=== PATIENT | female | born 2005 | race Caucasian/White ===

== ENCOUNTER 2025-01-04 18:30 | Inpatient (IN) | payer MEDICAID, SELFPAY ==
[2025-01-04] VITALS (17 sets, daily range): BP systolic 98–145; BP diastolic 53–86; PULSE 78–115; RESP 18; TEMP 36.6–36.7
--- OUTSIDE RECORDS SUMMARY | 2025-01-04 18:34 | XMS_ITS | Data Portability ---
Author Organization [facility] [place] [facility] Address [address] [place] [phone] Assessment No assessment recorded. Plan of Treatment Reminders Order Date Submit Date Provider Last Modified By Organization Details Last Modified Time Details Appointments RETURN OB 2024 10:50A M Deonte Servin MD Not available Not available Not available Lab streptoco ccus group B, culture, unspecifi ed specimen 2024 025 [place] [facility], [address] [facility] , [place] [address], [address], 12/10/2024 09:23:48 Referral None recorded. Procedures None recorded. Surgeries None recorded. Imaging None recorded. Medication Orders None recorded. Patient TargetsNo targets recorded. Patient InstructionsNo instructions recorded. Reason for Referral None Reported. Results Created Date Observation Date Name Description Value Unit Range Abnormal Flag Note LastModifiedBy Organization Detail LastModifiedTime 12/08/19 25 12/10/2024 STREP TOCOC CUS, GROUP B CULTU RE streptococcu s, group B culture SEE NOTE STREP TOCOC CUS, GROUP B CULTU RE Micro Numbe r: [id number] Test Statu s: Final Speci men Sourc e: Vagin al/an orect al Speci men Quali ty: Adequ ate Resul t: No group B Strep tococ cus isola urbano Note per CDC guide lines optim al recov catherine is achie robert by swabb ing both the lower vagin a and rectu m (thro ugh the anal sphin cter) . Not Available [facility] [address] , [place], [address], 12/10/2024 09:23:48 Result Notes None recorded. Problems Name Problem SNOMED Code Status Onset Date Resolution Date Notes Provider Name and Address Organization Details Recorded Time Normal in primigravid a 5295879047872 03 Active 2023 JAROD LYNN [facility] 14:23:31 Normal in primigravid a 2615918505235 03 Active 2023 JARODELYSSA LYNN [facility] 14:23:31 Problem Notes None recorded. Procedures Surgical History Date Name Laterality Status Provider Name and Address Organization Details Recorded Time extraction of wisdom tooth completed [facility] 08/01/2024 14:19:59 surgery of cataract of right eye completed [facility] 10/26/2024 12:03:07 Imaging Results None recorded. Procedure Notes None recorded. Medical Equipment None Reported. Allergies Allergen ID Allergen Name Allergen Category Reaction Reaction Severity Criticality Documentation Date Start Date Code Code System Note Provider Name and Address Organization Details Recorded Time 13188 Substance with sulfonami de structure and antibacte rial mechanism of action (substanc e) medicatio n Not available Not available Not available 08/01/2024 40992 8003 SNOMED [facility] 14:17:47 Medications Name Sig Start Date Stop Date Status Note LastModified by Organization Details LastModified Time amoxicillin 500 mg capsule TAKE 1 CAPSULE BY MOUTH 3 TIMES DAILY FOR 7 DAYS 08/01 completed Not Available Not Available Not Available active Not Available Not Avai lable Not Available Vitals Date Recorded Body height Body mass index (BMI) Body weight Respiratory rate Body temperature Heart rate Oxygen saturation Oxygen saturation in Arterial blood by Pulse oximetry Systolic blood pressure Diastolic blood pressure Provider Name and Address Organization Details Last Updated DateTime 5 157.48 cm 28.1 kg/m2 94220.4 3 g 16 /min 98.8 [degF] 99 /min 99 % 99 % 112 mm[Hg] 68 mm[Hg] JAROD LYNN [facility] 5 11:52:04 Date Recorded Body height Body mass index (BMI) Body weight Oxygen saturation Oxygen saturation in Arterial blood by Pulse oximetry Heart rate Respiratory rate Body temperature Systolic blood pressure Diastolic blood pressure Provider Name and Address Organization Details Last Updated DateTime 5 157.48 cm 27.4 kg/m2 68240.8 6 g 99 % 99 % 101 /min 18 /min 98.7 [degF] 118 mm[Hg] 76 mm[Hg] QUINN GONZÁLES [facility], L.L[facility] 5 11:47:24 Date Recorded Body height Body mass index (BMI) Body weight Oxygen saturation Oxygen saturation in Arterial blood by Pulse oximetry Heart rate Respiratory rate Body temperature Systolic blood pressure Diastolic blood pressure Provider Name and Address Organization Details Last Updated DateTime 5 157.48 cm 28.3 kg/m2 34509.0 2 g 99 % 99 % 108 /min 18 /min 98.7 [degF] 120 mm[Hg] 68 mm[Hg] QUINN HOGANOHVicenta [facility], L.L.[facility] 5 11:58:55 Date Recorded Body height Body mass index (BMI) Body weight Respiratory rate Heart rate Oxygen saturation Oxygen saturation in Arterial blood by Pulse oximetry Body temperature Systolic blood pressure Diastolic blood pressure Provider Name and Address Organization Details Last Updated DateTime 5 157.48 cm 28.2 kg/m2 93460.9 2 g 18 /min 76 /min 99 % 99 % 98.6 [degF] 112 mm[Hg] 62 mm[Hg] JAROD LYNN [facility] 5 12:05:33 Date Recorded Body height Body mass index (BMI) Body weight Oxygen saturation Oxygen saturation in Arterial blood by Pulse oximetry Heart rate Respiratory rate Body temperature Systolic blood pressure Diastolic blood pressure Provider Name and Address Organization Details Last Updated DateTime 5 157.48 cm 28.4 kg/m2 18719.6 2 g 97 % 97 % 84 /min 18 /min 99.4 [degF] 118 mm[Hg] 70 mm[Hg] QUINN RIVERA [facility] 12:04:07 Social History Question Answer Notes LastModified by Organizat ion Details LastModified Time Tobacco Smoking Status Never Smoker QUINN gardner [facility] 08/01/2024 14:19:13 What Is Your Relationship Status? Information not available 08/01/2024 Sex: Unknown Functional Status Question Answer Note LastModified by Organizat ion Details LastModified Time Do you use any illicit or recreational drugs? No Information not available 08/01/2024 Do you or have you ever used any other forms of tobacco or nicotine? No [email or web address] Information not available 11/23/2024 What is your level of alcohol consumption? None Information not available 08/01/2024 Are you currently employed? Yes [employer] Information not available 08/01/2024 Are you able to care for yourself? Yes Information not available 08/01/2024 Mental Status None recorded. Family History Relationship Description Onset Age of this Age Resolved Age Notes LastModified by Organization Details LastModified Time Paternal Grandfather Diabetes mellitus [email or web address] Not available 14:18:35 Paternal Grandfather Heart disease [email or web address] Not available 14:18:49 Paternal Grandmother Heart disease [email or web address] Not available 14:18:49 Medical History No medical history recorded. Gynecological HistoryNo gynecological history recorded. Obstetrics History GPAL:G 1 P 0 0 0 0 Immunizations Vaccine Type Date Status Note Provider Nam e and Address Organization Details Recorded Time MMR 6 completed QUINN gardner [facility] 08/01/2024 14:17:15 COVID-19, mRNA, LNP-S, bivalent, PF, 50 mcg/0.5 mL or 25mcg/0.25 mL dose 3 completed TREBA NEUSCHWANDER null, [facility] 08/01/2024 14:17:15 Tdap 7 completed TREBA NEUSCHWANDER null, [facility] 08/01/2024 14:17:15 varicella 6 completed TREBA NEUSCHWANDER null, [facility] 08/01/2024 14:17:15 polio, unspecified formulation 6 completed TREBA NEUSCHWANDER null, [facility] 08/01/2024 14:17:15 meningococcal MCV4P 7 completed TREBA NEUSCHWANDER null, [facility] 08/01/2024 14:17:15 meningococcal MCV4P 1 completed TREBA NEUSCHWANDER null, [facility] 08/01/2024 14:17:15 DTaP 6 completed TREBA NEUSCHWANDER null, [facility] 08/01/2024 14:17:15 Influenza, split virus, quadrivalent, PF 3 completed TREBA NEUSCHWANDER null, [facility] 08/01/2024 14:17:15 Past Encounters Encounter ID Performer Location Encounter Start Date Encounter Closed Date Diagnosis/Indication Diagnosis SNOMED-CT Code Diagnosis ICD10 Code Diagnosis Note [id number] Deonte Servin MD [facility] ([facility]) [address] [place] [phone] 08/01/2024 14:07:47 08/01/2024 15:09:16 Normal in primigravida [id number] 32917 Z34.00 [id number] Deonte Servin MD [facility] ([facility]) [address] [place] [id number] 5 08/09/2024 13:56:24 08/09/2024 15:28:33 Normal in primigravida 5912355510 [id number] Deonte Servin MD [facility] ([facility]) [address] [place] [id number] 5 09/07/2024 10:53:29 09/08/2024 13:32:03 [id number] Deonte Servin MD [facility] ([facility]) [address] [place] [id number] 5 09/07/2024 11:39:49 09/07/2024 13:29:22 Normal in primigravida 7060726988 04814 Z34.02 Gestation period, 23 weeks 45853685 Z3A.23 [id number] Deonte Servin MD [facility] ([facility]) [address] [place] [id number] 5 10/19/2024 14:13:57 10/19/2024 14:46:53 Normal in primigravida 8827417835 96802 Z34.02 Gestation period, 29 weeks 88834904 Z3A.29 [id number] Deonte Servin MD [facility] ([facility]) [address] [place] [id number] 5 10/26/2024 11:41:31 10/26/2024 12:43:07 Normal in primigravida 1907670855 41859 Z34.02 Gestation period, 30 weeks 38541088 Z3A.30 [id number] Deonte Servin MD [facility] ([facility]) [address] [place] [id number] 5 10/26/2024 09:39:29 10/28/2024 04:13:50 [id number] Deonte Servin MD [facility] ([facility]) [address] [place] [phone] 5 11/09/2024 11:40:04 11/09/2024 12:41:22 Normal in primigravida 4810912215 25386 Z34.02 Gestation period, 32 weeks 2451797 Z3A.32 [id number] Deonte Servin MD [facility] ([facility]) [address] [place] [id number] 5 11/23/2024 11:43:48 11/23/2024 12:46:36 Normal in primigravida 4761138080 16718 Z34.03 Gestation period, 34 weeks 73969838 Z3A.34 [id number] Deonte Servin MD [facility] ([facility]) [address] [place], [place] [phone] 12/07/2024 11:35:32 12/07/2024 12:07:34 Normal in primigravida 3425828722 48410 Z34.03 Gestation period, 36 weeks 43776668 Z3A.36 [id number] Deonte Servin MD [facility] ([facility]) [address] [place], [place] [phone] 12/14/2024 11:40:54 12/14/2024 12:34:28 Normal in primigravida 1443467965 09785 Z34.03 Gestation period, 37 weeks 68037302 Z3A.37 [id number] Deonte Servin MD [facility] ([facility]) [address] [place], [place] [phone] 12/21/2024 11:38:24 12/21/2024 12:40:02 Normal in primigravida 1678987477 03346 Z34.03 Gestation period, 38 weeks 25213647 Z3A.38 [id number] Deonte Servin MD [facility] ([facility]) [address] [place] [id number] 5 12/28/2024 11:42:47 01/02/2025 13:55:34 Normal in primigravida 7292067482 41542 Z34.03 Gestation period, 39 weeks 76700116 Z3A.39 [id number] Deonte Servin MD [facility] ([facility]) [address] [place] [id number] 5 01/04/2025 11:46:40 01/04/2025 12:27:03 Normal in primigravida 8636847029 18309 Z34.03 Gestation period, 40 weeks 12674533 Z3A.40 Health Concerns Section Related Observation LastModified by Organization Detai ls LastModified Time None Recorded Concern Status LastModified by Organization Details LastModified Time None Recorded Advance Directives Directive None Recorded Payers Encounter Date Sequence Insurance Name Policy Number Policy Ku Covered Member ID Ku Member ID Guarantor Name 12/07/2024 1 [employer] - 90 DEGREE BENEFITS - [employer] (PPO) [id number] Tawnycecilia Sullivanwell [id number] Tere Silva 12/07/2024 2 [employer] (MEDICA[place]PLAC[place] - HMO) BILLY Green [id number] Tereanjelica Silva 12/14/2024 1 [employer] - 90 DEGREE BENEFITS - [employer] (PPO) [id number] Tawnycecilia Sullivanwell [id number] Tere Silva 12/14/2024 2 [facility] - [place] BILLY Green [id number] Tereanjelica Silva 12/21/2024 1 [employer] - 90 DEGREE BENEFITS - [employer] (PPO) [id number] Tawnycecilia Sullivanwell [id number] Tere Silva 12/21/2024 2 [facility] - [place]) BILLY Green [id number] Tereanjelica Silva 12/28/2024 1 [employer] - 90 DEGREE BENEFITS - [employer] (PPO) [id number] Tawnycecilia Sullivanwell [id number] Tere Silva 12/28/2024 2 [facility] [employer] ([place]PLAC[place] - HMO) BILLY Green [id number] Tere Silva 01/04/2025 1 [employer] - 90 DEGREE BENEFITS - [employer] (PPO) [id number] Tawnycecilia Sullivanwell [id number] Tere Silva 01/04/2025 2 [facility] [employer] ([place]PLAC[place] - HMO) BILLY Green [id number] Tere Silva Notes Date Note Type Note Provider Name and Address Organization Details Recorded Time 12/07/2024 text/html jr ob routineRep orted bypatient.Associated Symptoms:no abdominal pain; no contractions; normal movement; no bleeding; no vaginal discharge; no vaginal/vulvar itching or irritation; no dysuria; no frequency; no urgency; no hematuria; no fever; no emesis; no constipation; no diarrhea/loose stool; no edema; no visual changes; no headache; no dizziness; no breathlessness;crampi ng(intermittent);naus eaNotes:Low back pain,Pt denies any alcohol,tobacco or drug use Deonte Servin MD [address] [place] [address], [phone], [facility], [place] 12/07/2024 12:06:10 12/14/2024 text/html ob routineRep orted bypatient.Associated Symptoms:no abdominal pain; no contractions; normal movement; no bleeding; no vaginal discharge; no vaginal/vulvar itching or irritation; no dysuria; no frequency; no urgency; no hematuria; no fever; no nausea; no emesis; no constipation; no diarrhea/loose stool; no edema; no visual changes; no headache; no dizziness; no breathlessness;crampi ng(intermittent)Notes :Low back pain,Pt denies any alcohol,tobacco or drug use Deonte Servin MD [address] [place] [address], [phone], [facility], [place] 12/14/2024 12:19:47 12/21/2024 text/html ob routineRep orted bypatient.Associated Symptoms:no contractions; normal movement; no bleeding; no vaginal discharge; no vaginal/vulvar itching or irritation; no dysuria; no frequency; no urgency; no hematuria; no fever; no emesis; no constipation; no diarrhea/loose stool; no edema; no visual changes; no headache; no dizziness; no breathlessness;abdomi nal pain;cramping(intermi ttent);nauseaNotes:Lo w back pain, vaginal pressurePt denies any alcohol,tobacco or drug use Deonte Servin MD [address] [place] [address], [phone], [facility], [place] 12/21/2024 12:24:26 12/28/2024 text/html ob routineRep orted bypatient.Associated Symptoms:no abdominal pain; no contractions; normal movement; no bleeding; no vaginal discharge; no vaginal/vulvar itching or irritation; no dysuria; no frequency; no urgency; no hematuria; no fever; no nausea; no emesis; no constipation; no diarrhea/loose stool; no edema; no visual changes; no headache; no dizziness; no breathlessness;crampi ng(intermittent)Notes :Low back pain,Pt denies any alcohol,tobacco or drug use Deonte Servin MD [address] [place] [address], [phone], [facility] 12/29/2024 06:48:41 01/04/2025 text/html ob routineRep orted bypatient.Associated Symptoms:no abdominal pain; no contractions; normal movement; no bleeding; no vaginal discharge; no vaginal/vulvar itching or irritation; no dysuria; no frequency; no urgency; no hematuria; no fever; no nausea; no emesis; no constipation; no diarrhea/loose stool; no edema; no visual changes; no headache; no dizziness; no breathlessness;crampi ng(intermittent)Notes :Low back pain, vaginal pressurePt denies any alcohol,tobacco or drug use Deonte Servin MD [address] [place] [address], [phone], [facility] 01/04/2025 12:21:34 OBGyn Episode Ob Episode Information Episode Created Date Number of Fetuses Patient Bloodtype Patient rh Status Prepregnancy Weight lbs Domestic Partner Domestic Partner Phone Father Name Wafer Cutter Status 08/01/20 24 1 O Positive Ortiz OPEN Fetus Data First Name Last Name Admitted to NICU Weight (g) Sex Living Outcome Pediatric Complications Fetus ID Race Codes Race Delivery Type [id number] Problems Problem Notes Problem Name Start Date End Date Resolution Snomed Code Not e Normal in primigravida 08/06/2024 [id number] Uri Calculation Initial Uri Date Initial Exam Date Initial Exam Provider Initial Ultrasound Date Last Menstrual Period Date Ultra Sound Weeks Gestation 01/02/2025 08/01/2024 03/28/2024 0 Eighteen To Twenty Week Uri Update Ultra Sound Date Fundal Height At Umbil Quickening Date Ultra Sound Latest Weeks Gestation Final Uri Confirmed By Final Uri Confirmed Date Final Uri Date Ultra Sound Latest Days Gestation 0 0 Pre-georgie Flowsheet Flowsheet Date 08/01/2024 Munoz Score Blood Edema Fundus Height Fundus Units Glucose Ketones Leukocytes Nitrite Labor Signs Protein Cervic Dilation Cervic Effacement Cervic Station Type Weight in lbs Pre/Post Dialysis Refused 126.197919112277 BP Diastolic BP Location Tested BP Systolic BP Type 64 118 sitting Fetus Heart Rate Present A 146 Present Fetus Movement Comments OBI nausea/vomiting, constip ation, OBI Flowsheet Date 08/09/2024 Munoz Score Blood Edema Fundus Height Fundus Units Glucose Ketones Leukocytes Nitrite Labor Signs Protein Cervic Dilation Cervic Effacement Cervic Station Type Weight in lbs Pre/Post Dialysis Refused 128.324443476787 BP Diastolic BP Location Tested BP Systolic BP Type 62 100 sitting Fetus Heart Rate Present A 144 Present Fetus Movement Comments NOB, headache, low back pain Flowsheet Date 09/07/2024 Munoz Score Blood Edema Fundus Height Fundus Units Glucose Ketones Leukocytes Nitrite Labor Signs Protein Cervic Dilation Cervic Effacement Cervic Station Type Weight in lbs Pre/Post Dialysis Refused BP Diastolic BP Location Tested BP Systolic BP Type Fetus Heart Rate Present Fetus Movement Comments Flowsheet Date 09/07/2024 Munoz Score Blood Edema Fundus Height Fundus Units Glucose Ketones Leukocytes Nitrite Labor Signs Protein Cervic Dilation Cervic Effacement Cervic Station 23 cm none trace Negative neg Type Weight in lbs Pre/Post Dialysis Refused 133.094193657447 BP Diastolic BP Location Tested BP Systolic BP Type 62 110 sitting Fetus Heart Rate Present A 144 Present Fetus Movement A Yes Comments back pain, pt will get labs drawn today Flowsheet Date 10/19/2024 Munoz Score Blood Edema Fundus Height Fundus Units Glucose Ketones Leukocytes Nitrite Labor Signs Protein Cervic Dilation Cervic Effacement Cervic Station 29 cm none trace trace Type Weight in lbs Pre/Post Dialysis Refused 143.356252681312 BP Diastolic BP Location Tested BP Systolic BP Type 74 116 Fetus Heart Rate Present A 144 Present Fetus Movement A Yes Comments low back pain Flowsheet Date 10/26/2024 Munoz Score Blood Edema Fundus Height Fundus Units Glucose Ketones Leukocytes Nitrite Labor Signs Protein Cervic Dilation Cervic Effacement Cervic Station Type Weight in lbs Pre/Post Dialysis Refused BP Diastolic BP Location Tested BP Systolic BP Type Fetus Heart Rate Present Fetus Movement Comments Flowsheet Date 10/26/2024 Munoz Score Blood Edema Fundus Height Fundus Units Glucose Ketones Leukocytes Nitrite Labor Signs Protein Cervic Dilation Cervic Effacement Cervic Station 30 cm 1+ none Negative neg Type Weight in lbs Pre/Post Dialysis Refused 148.646700022741 BP Diastolic BP Location Tested BP Systolic BP Type 64 112 sitting Fetus Heart Rate Present A 156 Present Fetus Movement A Yes Comments Glucose screen today, nausea , low back pain Flowsheet Date 11/09/2024 Munoz Score Blood Edema Fundus Height Fundus Units Glucose Ketones Leukocytes Nitrite Labor Signs Protein Cervic Dilation Cervic Effacement Cervic Station 32 cm none 1+ Negative trace Type Weight in lbs Pre/Post Dialysis Refused 147.432464068524 BP Diastolic BP Location Tested BP Systolic BP Type 64 112 sitting Fetus Heart Rate Present A 143 Present Fetus Movement A Yes Comments mild cramping, diarrhea,low back pain Flowsheet Date 11/23/2024 Munoz Score Blood Edema Fundus Height Fundus Units Glucose Ketones Leukocytes Nitrite Labor Signs Protein Cervic Dilation Cervic Effacement Cervic Station 34 cm none trace 1+ Type Weight in lbs Pre/Post Dialysis Refused 149.5568928584 BP Diastolic BP Location Tested BP Systolic BP Type 66 L arm 128 Fetus Heart Rate Present A 156 Present Fetus Movement A Yes Comments low back pain, heartburn Flowsheet Date 12/07/2024 Munoz Score Blood Edema Fundus Height Fundus Units Glucose Ketones Leukocytes Nitrite Labor Signs Protein Cervic Dilation Cervic Effacement Cervic Station 36 cm none trace trace 2cm 60% -3 Type Weight in lbs Pre/Post Dialysis Refused Weight 153.628952914960 BP Diastolic BP Location Tested BP Systolic BP Type 68 112 Fetus Heart Rate Present A 164 Present Fetus Movement A Yes Comments cramping intermittent, nause a, low back painGroup B Strep swab collected today Flowsheet Date 12/07/2024 Munoz Score Blood Edema Fundus Height Fundus Units Glucose Ketones Leukocytes Nitrite Labor Signs Protein Cervic Dilation Cervic Effacement Cervic Station Type Weight in lbs Pre/Post Dialysis Refused BP Diastolic BP Location Tested BP Systolic BP Type Fetus Heart Rate Present Fetus Movement Comments [facility] RA completed Flowsheet Date 12/13/2024 Munoz Score Blood Edema Fundus Height Fundus Units Glucose Ketones Leukocytes Nitrite Labor Signs Protein Cervic Dilation Cervic Effacement Cervic Station Type Weight in lbs Pre/Post Dialysis Refused BP Diastolic BP Location Tested BP Systolic BP Type Fetus Heart Rate Present Fetus Movement Comments Group B strep NegativeOB rec ords sent Flowsheet Date 12/14/2024 Munoz Score Blood Edema Fundus Height Fundus Units Glucose Ketones Leukocytes Nitrite Labor Signs Protein Cervic Dilation Cervic Effacement Cervic Station 37 cm none 1+ Negative trace 2cm 70% -2 Type Weight in lbs Pre/Post Dialysis Refused Weight 150.782470195809 BP Diastolic BP Location Tested BP Systolic BP Type 76 118 sitting Fetus Heart Rate Present A 155 Present Fetus Movement A Yes Comments cramping, low back pain Flowsheet Date 12/21/2024 Munoz Score Blood Edema Fundus Height Fundus Units Glucose Ketones Leukocytes Nitrite Labor Signs Protein Cervic Dilation Cervic Effacement Cervic Station 37 cm none none Negative trace 3cm 70% -2 Type Weight in lbs Pre/Post Dialysis Refused Weight 154.979584041940 BP Diastolic BP Location Tested BP Systolic BP Type 68 120 sitting Fetus Heart Rate Present A 148 Present Fetus Movement A Yes Comments abdominal pain/cramping, [place], low back pain, vaginal pressure Flowsheet Date 12/28/2024 Munoz Score Blood Edema Fundus Height Fundus Units Glucose Ketones Leukocytes Nitrite Labor Signs Protein Cervic Dilation Cervic Effacement Cervic Station 37 cm none 1+ trace Type Weight in lbs Pre/Post Dialysis Refused Weight 154.757607732665 BP Diastolic BP Location Tested BP Systolic BP Type 62 L arm 112 Fetus Heart Rate Present A 144 Present Fetus Movement A Yes Comments cramps, low back pain Flowsheet Date 01/04/2025 Munoz Score Blood Edema Fundus Height Fundus Units Glucose Ketones Leukocytes Nitrite Labor Signs Protein Cervic Dilation Cervic Effacement Cervic Station 38 cm none 1+ Negative neg 80% - 3 Type Weight in lbs Pre/Post Dialysis Refused Weight 155.601213839665 BP Diastolic BP Location Tested BP Systolic BP Type 70 118 sitting Fetus Heart Rate Present A 140 Present Fetus Movement A Yes Comments cramping, low back pain, vag inal pressure Menstrual History Last Menstrual Date Menses Monthly On Bcp Conception Prior Menses Frequency Hcg Plus Date Menarche Onset Age 0803/28/2024 true Genetic Screening And Infection History Question Response Note Patient's Age Will Be 35 Years Or Older At Estim ated Date of Delivery false Thalassemia (Burundian, Irish, Mediterranean, Or Background): MCV < 80 false Neural Tube Defect (Meningomyelocele, Spina Bifi da, Or Anencephaly) false Congenital Heart Defect false Down Syndrome false Amor-Sachs (eg, Yarsani, Cajun, German-Macanese) f alse Joseph Disease false Sickle Cell Disease Or Trait () false Hemophilia Or Other Blood Disorders false Muscular Dystrophy false Cystic Fibrosis false Micah's Chorea false Intellectual Disability/Autism false If Yes, Was Person Tested For Fragile X? false Other Inherited Genetic Or Chromosomal Disorder false Maternal Metabolic Disorder (eg, Type 1 Diabetes , PKU) false Patient Or Baby's Father Had A Child With Defects Not Listed Above false Recurrent Loss, Or A Stillbirth false Medications (including Suppl ements, Vitamins, Herbs, OTC Drugs), Illicit/Recreational Drugs, Alcohol false If Yes, Agent(s) And Strength/Dosage false Any Other Genetic History false Live With Someone With TB Or Exposed To TB false Patient Or Partner Has History Of Genital Herpes false Rash Or Viral Illness Since Last Menstrual Perio d false History Of STD, Gonorrhea, Chlamydia, HPV, Syphi lis false Other Infection History false History of HIV false History of Hepatitis false Prior GBS-infected child false Hemoglobinopathy Or Carrier false Other Structural Defect false Recent Travel History Outside of Country false Mental Retardation/Autism false Delivery Information Delivery Date Delivery Type Labor Anesthesia Weeks Gestation Incision Type Labor Labor Length Hrs Delivered By Post Complications Tubal Sterilization Discharge Date Comments Discharge Information Feeding Method Contraceptive Method Maternal HG B and HCT Levels
--- OUTSIDE RECORDS SUMMARY | 2025-01-04 18:35 | XMS_ITS | Continuity of Care Document ---
Author Organization [facility] Ha, LKenisha, [facility] ([facility]) Address [address] [place] [address] Assessment No assessment recorded. Plan of Treatment Reminders Order Date Submit Date Provider Last Modified By Organization Details Last Modified Time Details Appointments RETURN OB 2024 10:50A M Deonte Servin MD Not available Not available Not available Lab None recorded . Referral None recorded . Procedures None recorded . Surgeries None recorded . Imaging None recorded . Medication Orders None recorded . Patient TargetsNo targets recorded. Patient InstructionsNo instructions recorded. Reason for Referral None Reported. Results Created Date Observation Date Name Description Value Unit Range Abnormal Flag Note LastModifiedBy Organization Detail LastModifiedTime 09/08/1909/07/2024 imagi ng/akila corrales tic resul t No observ ation record ed. [address] [place], [address], 09/12/2024 08:27:56 Result Notes None recorded. Problems Name Problem SNOMED Code Status Onset Date Resolution Date Notes Provider Name and Address Organization Details Recorded Time Normal in primigravid a 6146068945589 03 Active 2023 [facility] 14:23:31 Normal in primigravid a 9632001782034 03 Active 2023 [facility] 14:23:31 Problem Notes None recorded. Procedures Surgical History Date Name Laterality Status Provider Name and Address Organization Details Recorded Time extraction of wisdom tooth completed QUINN SAINZ [facility], L[facility]CT[facility] 08/01/2024 14:19:59 [facility] 10/26/2024 12:03:07 Imaging Results None recorded. Procedure Notes None recorded. Medical Equipment None Reported. Allergies Allergen ID Allergen Name Allergen Category Reaction Reaction Severity Criticality Documentation Date Start Date Code Code System Note Provider Name and Address Organization Details Recorded Time 70517 Substance with sulfonami de structure and antibacte rial mechanism of action (substanc e) medicatio n Not available Not available Not available 08/01/2024 78039 8003 SNOMED QUINN Robles [facility], L.L.CTala 14:17:47 Medications Name Sig Start Date [...] Updated DateTime 5 157.48 cm 28.2 kg/m2 95183.9 2 g 18 /min 76 /min 99 % 99 % 98.6 [degF] 112 mm[Hg] 62 mm[Hg] JAROD LYNN [facility], L.L.CTala 5 12:05:33 Social History Question Answer Notes LastModified by Organizat ion Details LastModified Time Tobacco Smoking Status Never Smoker QUINN gardner [facility], L.L.CTala 08/01/2024 14:19:13 What Is Your Relationship Status? [...] you currently employed? Yes [employer] Information not available 08/01/2024 Are you able [...] Details Recorded Time MMR 6 completed QUINN gardnre [facility] 08/01/2024 14:17:15 COVID-19, mRNA, LNP-S, bivalent, PF, 50 mcg/0.5 mL or 25mcg/0.25 mL dose 3 completed QUINN gardner [facility] 08/01/2024 14:17:15 Tdap 7 completed QUINN gardner [facility] 08/01/2024 14:17:15 varicella 6 completed QUINN gardner [facility] L[facility] 08/01/2024 14:17:15 polio, unspecified formulation 6 completed QUINN gardner [facility] 08/01/2024 14:17:15 meningococcal MCV4P 7 completed TREBA NEUSCHWANDER null, [facility] 08/01/2024 14:17:15 meningococcal MCV4P 1 completed TREBA NEUSCHWANDER null, [facility] 08/01/2024 14:17:15 DTaP 6 completed TREBA NEUSCHWANDER null, [facility] 08/01/2024 14:17:15 Influenza, split virus, quadrivalent, PF 3 completed TREBA NEUSCHWANDER null, [facility] 08/01/2024 14:17:15 Past Encounters Encounter ID Performer Location Encounter Start Date Encounter Closed Date Diagnosis/Indication Diagnosis SNOMED-CT Code Diagnosis ICD10 Code Diagnosis Note [id number] Deonte Servin MD [facility] ([facility]) [address] [place] [address] 5 12/07/2024 11:35:32 12/07/2024 12:07:34 Normal in primigravida 0412333934 78900 Z34.03 Gestation period, 36 weeks 86992809 Z3A.36 [id number] Deonte Servin MD [facility] ([facility]) [address] [place] [address] 5 12/14/2024 11:40:54 12/14/2024 12:34:28 Normal in primigravida 7842767171 24865 Z34.03 Gestation period, 37 weeks 66021871 Z3A.37 [id number] Deonte Servin MD [facility] ([facility]) [address] [place] [address] 5 12/21/2024 11:38:24 12/21/2024 12:40:02 Normal in primigravida 2777151408 47682 Z34.03 Gestation period, 38 weeks 36163979 Z3A.38 [id number] Deonte Servin MD [facility] ([facility]) [address] [place] [address] 12/28/2024 11:42:47 01/02/2025 13:55:34 Normal in primigravida 0113588747 55487 Z34.03 Gestation period, 39 weeks 31497929 Z3A.39 Health Concerns Section Related Observation LastModified by Organization Detai ls LastModified Time None Recorded Concern Status LastModified by Organization Details LastModified Time None Recorded Payers Encounter Date Sequence Insurance Name Policy Number Policy Ku Covered Member ID Ku Member ID Guarantor Name 12/28/2024 1 [employer] - 90 DEGREE BENEFITS - [employer] PROVIDER NETWORK (PPO) [id number] Tawny Green [id number] Tere Silva 12/28/2024 2 [facility] (MEDICAID REPLACEMENT - HMO) BILLY Green [id number] Tere Silva Notes Date Note Type Note Provider Name and Address Organization Details Recorded Time 12/28/2024 text/html jr ob routineRep orted bypatient.Associated Symptoms:no [...] alcohol,tobacco or drug use Deonte Servin MD [address] [place] [address], [phone], [facility] 12/29/2024 06:48:41 OBGyn Episode Ob Episode Information Episode Created Date Number of Fetuses Patient Bloodtype Patient rh Status Prepregnancy Weight lbs Domestic Partner Domestic Partner Phone Father Name Sexologist Status 08/01/20 24 1 O Positive Ortiz OPEN Fetus Data First Name Last Name Admitted to NICU Weight (g) Sex Living Outcome Pediatric Complications Fetus ID Race Codes Race Delivery Type [id number] Problems Problem Notes Problem Name Start Date End Date Resolution Snomed Code Not e Normal in primigravida 08/06/2024 847264084221721 Uri Calculation Initial Uri Date Initial Exam [...] Ultra Sound Latest Days Gestation 0 0 Pre- Flowsheet Flowsheet Date 08/01/2024 Munoz Score Blood Edema Fundus Height Fundus Units Glucose Ketones Leukocytes Nitrite Labor Signs Protein Cervic Dilation Cervic Effacement Cervic Station Type Weight in lbs Pre/Post Dialysis Refused 126.154165323929 BP Diastolic BP Location Tested BP Systolic BP Type 64 118 sitting Fetus Heart Rate Present A 146 Present Fetus Movement Comments OBI nausea/vomiting, constip ation, OBI Flowsheet Date 08/09/2024 Munoz Score Blood Edema Fundus Height Fundus Units Glucose Ketones Leukocytes Nitrite Labor Signs Protein Cervic Dilation Cervic Effacement Cervic Station Type Weight in lbs Pre/Post Dialysis Refused 128.062725496003 BP Diastolic BP Location Tested BP Systolic [...] Type Weight in lbs Pre/Post Dialysis Refused 133.995141748974 BP Diastolic BP Location Tested BP Systolic [...] Type Weight in lbs Pre/Post Dialysis Refused 143.785642601234 BP Diastolic BP Location Tested BP Systolic [...] Type Weight in lbs Pre/Post Dialysis Refused 148.290296077809 BP Diastolic BP Location Tested BP Systolic [...] Type Weight in lbs Pre/Post Dialysis Refused 147.830572352866 BP Diastolic BP Location Tested BP Systolic [...] Type Weight in lbs Pre/Post Dialysis Refused 149.9555808071 BP Diastolic BP Location Tested BP Systolic [...] Weight in lbs Pre/Post Dialysis Refused Weight 153.011976727904 BP Diastolic BP Location Tested BP Systolic [...] Fetus Heart Rate Present Fetus Movement Comments [facility] RA completed Flowsheet Date 12/13/2024 Munoz [...] Weight in lbs Pre/Post Dialysis Refused Weight 150.757005297349 BP Diastolic BP Location Tested BP Systolic [...] Weight in lbs Pre/Post Dialysis Refused Weight 154.454424782160 BP Diastolic BP Location Tested BP Systolic [...] Weight in lbs Pre/Post Dialysis Refused Weight 154.010761439244 BP Diastolic BP Location Tested BP Systolic [...] Weight in lbs Pre/Post Dialysis Refused Weight 155.674900343008 BP Diastolic BP Location Tested BP Systolic [...] Estim ated Date of Delivery false Thalassemia (Nicaraguan, Lao, Mediterranean, Or Background): MCV < 80 false Neural Tube Defect (Meningomyelocele, Spina Bifi da, Or Anencephaly) false Congenital Heart Defect false Down Syndrome false Amor-Sachs (eg, Orthodox, Cajun, Sami-Morton) f alse Joseph Disease false Sickle Cell [...]
--- OUTSIDE RECORDS SUMMARY | 2025-01-04 18:35 | XMS_ITS | Continuity of Care Document ---
Author Organization [facility] Ha, LKenisha, [facility] ([facility]) Address [address] [place] [address] Assessment No assessment recorded. Plan of Treatment [...] resul t No observ ation record ed. [address] [place], [address], 09/12/2024 08:27:56 Result Notes None recorded. Problems Name Problem SNOMED Code Status Onset Date Resolution Date Notes Provider Name and Address Organization Details Recorded Time Normal in primigravid a 2835536234184 03 Active 2023 [facility] 14:23[facility]31 Normal in primigravid a 7007642007379 03 Active 2023 [facility] 14:23:31 Problem Notes None recorded. Procedures Surgical History Date Name Laterality Status Provider Name and Address Organization Details Recorded Time extraction of wisdom tooth completed QUINN SAINZ [facility], LTalaLTalaCTala 08/01/2024 14:19:59 surgery of cataract of right eye completed QUINN SAINZ [facility], L.L[facility]CT[facility] 10/26/2024 12:03:07 Imaging Results None recorded. Procedure Notes None recorded. Medical Equipment None Reported. Allergies Allergen ID Allergen Name Allergen Category Reaction Reaction Severity Criticality Documentation Date Start Date Code Code System Note Provider Name and Address Organization Details Recorded Time 83964 Substance with sulfonami de structure and antibacte rial mechanism of action (substanc e) medicatio n Not available Not available Not available 08/01/2024 75358 8003 SNOMED QUINN RIVERA [facility], LTalaL.CTala 14:17:47 Medications Name Sig Start Date Stop [...] Updated DateTime 5 157.48 cm 28.4 kg/m2 37507.6 2 g 97 % 97 % 84 /min 18 /min 99.4 [degF] 118 mm[Hg] 70 mm[Hg] QUINN RIVERA [facility], L.L[facility]CTala 5 12:04:07 Social History Question Answer Notes LastModified by Organizat ion Details LastModified Time Tobacco Smoking Status Never Smoker QUINN gardner [facility], LTalaLTalaCTala 08/01/2024 14:19:13 What Is Your Relationship Status? [email or web address] Information not available 08/01/2024 Sex: Unknown Functional [...] you currently employed? Yes [employer] Information not available 08/01/2024 Are you able [...] Recorded Time MMR 6 completed QUINN gardner [facility] 08/01/2024 14:17:15 COVID-19, mRNA, LNP-S, bivalent, PF, 50 mcg/0.5 mL or 25mcg/0.25 mL dose 3 completed QUINN gardner [facility] 08/01/2024 14:17:15 Tdap 7 completed QUINN gardner [facility] 08/01/2024 14:17:15 varicella 6 completed QUINN gardner [facility] 08/01/2024 14:17:15 polio, unspecified formulation 6 completed QUINN gardner [facility] 08/01/2024 14:17:15 meningococcal MCV4P 7 completed TREBA NEUSCHWANDER null, [facility] 08/01/2024 14:17:15 meningococcal MCV4P 1 completed TREBA NEUSCHWANDER null, [facility] 08/01/2024 14:17:15 DTaP 6 completed TREBA NEUSCHWANDER null, [facility] 08/01/2024 14:17:15 Influenza, split virus, quadrivalent, PF 3 completed TREBA NEUSCHWANDER null, [facility] 08/01/2024 14:17:15 Past Encounters Encounter ID Performer Location Encounter Start Date Encounter Closed Date Diagnosis/Indication Diagnosis SNOMED-CT Code Diagnosis ICD10 Code Diagnosis Note [id number] Deonte Servin MD [facility] ([facility]) [address] [place], [place] [address] 12/07/2024 11:35:32 12/07/2024 12:07:34 Normal in primigravida 5898439929 52767 Z34.03 Gestation period, 36 weeks 48899113 Z3A.36 [id number] Deonte Servin MD [facility] [address] [place], [place] [address] 12/14/2024 11:40:54 12/14/2024 12:34:28 Normal in primigravida 2390187050 78795 Z34.03 Gestation period, 37 weeks 90491685 Z3A.37 [id number] Deonte Servin MD [facility] ([facility]) [address] [place], [place] [address] 12/21/2024 11:38:24 12/21/2024 12:40:02 Normal in primigravida 1526702170 79423 Z34.03 Gestation period, 38 weeks 26655323 Z3A.38 [id number] Deonte Servin MD [facility] ([facility]) [address] [place] [address] 12/28/2024 11:42:47 01/02/2025 13:55:34 Normal in primigravida 0808183414 97252 Z34.03 Gestation period, 39 weeks 68403314 Z3A.39 [id number] Deonte Servin MD [facility] ([facility]) [address] [place] [address] 01/04/2025 11:46:40 01/04/2025 12:27:03 Normal in primigravida 8182460895 03466 Z34.03 Gestation period, 40 weeks 05584058 Z3A.40 Health Concerns Section Related Observation LastModified by Organization Detai ls LastModified Time None Recorded Concern Status LastModified by Organization Details LastModified Time None Recorded Payers Encounter Date Sequence Insurance Name Policy Number Policy Ku Covered Member ID Ku Member ID Guarantor Name 01/04/2025 1 [employer] - 90 DEGREE BENEFITS - [facility] PROVIDER NETWORK (PPO) [id number] Tawny Green [id number] Tere Silva 01/04/2025 2 [facility] ([place]PLAC[place] - HMO) BILLY Green [id number] Tere Silva Notes Date Note Type Note Provider Name and Address Organization Details Recorded Time 01/04/2025 text/html jr ob routineRep orted bypatient.Associated Symptoms:no [...] alcohol,tobacco or drug use Deonte Servin MD [address] [place] [address], [phone], [facility], Ray 01/04/2025 12:21:34 OBGyn Episode Ob Episode Information Episode Created Date Number of Fetuses Patient Bloodtype Patient rh Status Prepregnancy Weight lbs Domestic Partner Domestic Partner Phone Father Name Gusset Maker Status 08/01/20 24 1 O Positive Ortiz OPEN Fetus Data First Name Last Name Admitted to NICU Weight (g) Sex Living Outcome Pediatric Complications Fetus ID Race Codes Race Delivery Type 6484 Problems Problem Notes Problem Name Start Date End Date Resolution Snomed Code Not e Normal in primigravida 08/06/2024 248164609674240 Uri Calculation Initial Uri Date Initial Exam [...] Type Weight in lbs Pre/Post Dialysis Refused 126.951909038698 BP Diastolic BP Location Tested BP Systolic BP Type 64 118 sitting Fetus Heart Rate Present A 146 Present Fetus Movement Comments OBI nausea/vomiting, constip ation, OBI Flowsheet Date 08/09/2024 Munoz Score Blood Edema Fundus Height Fundus Units Glucose Ketones Leukocytes Nitrite Labor Signs Protein Cervic Dilation Cervic Effacement Cervic Station Type Weight in lbs Pre/Post Dialysis Refused 128.383720993207 BP Diastolic BP Location Tested BP Systolic [...] Type Weight in lbs Pre/Post Dialysis Refused 133.053047517396 BP Diastolic BP Location Tested BP Systolic [...] Type Weight in lbs Pre/Post Dialysis Refused 143.443183503620 BP Diastolic BP Location Tested BP Systolic [...] Type Weight in lbs Pre/Post Dialysis Refused 148.767003058716 BP Diastolic BP Location Tested BP Systolic [...] Type Weight in lbs Pre/Post Dialysis Refused 147.916333240971 BP Diastolic BP Location Tested BP Systolic [...] Type Weight in lbs Pre/Post Dialysis Refused 149.6562160161 BP Diastolic BP Location Tested BP Systolic [...] Weight in lbs Pre/Post Dialysis Refused Weight 153.600588611988 BP Diastolic BP Location Tested BP Systolic [...] Fetus Heart Rate Present Fetus Movement Comments C RA completed Flowsheet Date 12/13/2024 Munoz Score [...] Weight in lbs Pre/Post Dialysis Refused Weight 150.013586510820 BP Diastolic BP Location Tested BP Systolic [...] Weight in lbs Pre/Post Dialysis Refused Weight 154.709474333300 BP Diastolic BP Location Tested BP Systolic [...] Weight in lbs Pre/Post Dialysis Refused Weight 154.851426885288 BP Diastolic BP Location Tested BP Systolic [...] Weight in lbs Pre/Post Dialysis Refused Weight 155.072845056294 BP Diastolic BP Location Tested BP Systolic [...] Estim ated Date of Delivery false Thalassemia (Libyan, Liberian, Mediterranean, Or Background): MCV < 80 false Neural Tube Defect (Meningomyelocele, Spina Bifi da, Or Anencephaly) false Congenital Heart Defect false Down Syndrome false Amor-Sachs (eg, Jainism, Cajun, Togolese-[place]) f alse Joseph Disease false Sickle Cell Disease Or Trait () false Hemophilia Or Other Blood Disorders false Muscular Dystrophy false Cystic Fibrosis false [place]'s Chorea false Intellectual Disability/Autism false If Yes, [...]
[2025-01-04 20:00] LABS: Basophils % 0.3 %; Eosinophils # 0.1 10^3/uL (0.0-0.8); Eosinophils % 0.9 %; Hematocrit 35.2 % (36-47); Lymphocytes # 2.3 10^3/uL (0.8-4.8); Mean Corpuscular HGB Conc 33.5 g/dL (30-55); Mean Corpuscular Hemoglobin 29.2 pg (27-33); Mean Corpuscular Volume 87.1 fl (85-98); Mean Platelet Volume 11.5 fL (7.4-10.4); Monocytes # 0.7 10^3/uL (0.2-0.9); Monocytes % 4.3 %; Neutrophils # 12.23 10^3/uL (1.8-7.7); Neutrophils % 78.5 %; Nucleated Red Blood Cells % 0 %; Platelet Count 266 10^3/cmm (157-399); Red Blood Count 4.04 10^6/uL (3.85-5.65); Red Cell Distribution Width 13.7 % (12.1-15.1); White Blood Count 15.57 10^3/uL (3.29-11.43)
[2025-01-04] MEDS: miSOPROStol 100 mcg tablet 25 MCG VAGINAL (21:58)
[2025-01-05] VITALS (65 sets, daily range): BP systolic 96–146; BP diastolic 56–91; PULSE 68–127; RESP 18–20; TEMP 36.8–36.9; O2SAT 97–99; BMI 28.7
[2025-01-05] MEDS: lactated ringers 1,000 ML 999 ML IV (02:15)
[2025-01-05] MEDS: dextrose 5%-lactated ringers 1,000 ML 125 ML IV (06:00)
--- NOTE | 2025-01-05 06:23 | PM.OPHPUD ---
Labor & Delivery H&P Update Date of Procedure: January 05, 2025 Date H&P Performed: 01/04/25 Changes to previous documentation: No changes. Patient presenting for elective induction Admission Diagnosis: 19-year-old 1 at 40 weeks and 3 days presenting for induction Planned procedure: Vaginal delivery Other information: The patient is a healthy postdates female who presents for an elective induction. During the office visit yesterday, she dispensed a desire for induction since I will be out of town this weekend. We discussed the risks of induction including increased risk of a section. After our discussion, she continued to express her desire for induction and we set up for an elective induction at the same night. Her has been unremarkable. She has received consistent care. There have been no concerns during her . Her blood type is O+. Her antibody screen was negative. She passed her 3-hour glucose screen. She is rubella immune. She is GBS negative. the remainder of her infectious disease profile is within normal limits. Related Problem List Diagnoses (1) 40 weeks gestation of : A&P Assessment and plan (1) 40 weeks gestation of : The patient has been given Cytotec x 1. An amniotomy was performed this morning. Clear fluid was noted. I anticipate vaginal delivery. Status: Acute PDMP PDMP Reviewed: Not Reviewed
[2025-01-05] MEDS: sodium chloride 0.9% 1,000 ML 999 ML IV (08:00)
[2025-01-05] MEDS: ROPivacaine syringe 100 MG/50 ML SYRINGE 10 MG EPIDURAL (08:25)
--- NOTE | 2025-01-05 08:38 | P.ANESASSM_ITS ---
Pre-Anesthetic Assessment Height/Weight: Height 1.57 m Weight 71.214 kg Temp Pulse Resp BP Pulse Ox O2 Del Method 98.4 F 117 H 18 146/67 99 Room Air 01/05/25 06:20 01/05/25 08:27 01/04/25 18:44 01/05/25 08:22 01/05/25 08:27 01/04/25 19:30 Preop Diagnosis: IUP Epidural Familial anesthetic complications: None Social No alcohol and No tobacco Exam alert, oriented x 3, clear to auscultation bilaterally and regular rate & rhythm Airway Dentition: full Anesthetic Plan ASA status: 2 Anesthesia: Regional (specify below) Risk of > 500 ml blood loss (7ml/kg in children): Yes, adequate IV access and fluids planned Medications/Allergies Home Medications ?Medication ?Instructions ?Recorded ?Confirmed ?Last Taken ?Type doxycycline hyclate 100 mg tablet 100 mg PO BID 7 days #14 tabs 07/28/20 07/28/20 Unknown Rx medroxyprogesterone 150 mg/mL mg IM 07/28/20 07/28/20 Unknown History intramuscular suspension (Depo-Provera) mupirocin 2 % topical ointment 1 applic topical TID ce llulitis 07/28/20 07/28/20 Unknown Rx #15 grams Allergies Allergy/AdvReac Type Severity Reaction Status Date / Time Sulfa (Sulfonamide Allergy Unknown Verified 07/28/20 16:19 Antibiotics) Current Medications Generic Name Dose Route Start Last Admin Trade Name Freq PRN Reason Stop Dose Admin Lactated Ringer's 1,000 mls @ 999 mls/hr 01/04/25 19:51 01/05/25 02:45 Lactated Ringers IV 0 mls/hr .Q1H1M PRN Infusion Per L&D Rescitation Protocol Dextrose/Lactated Ringer's 1,000 mls @ 125 mls/hr 01/04/25 20:00 01/05/25 06:00 Dextrose 5%-Lactated Ringers IV 125 mls/hr .Q8H TIANNA Administration PFSH Anesthesia Social History (Updated 07/28/20 @ 16:21 by Noelle Vinson [facility]) Smoking and tobacco/nicotine status: never used tobacco/nicotine Alcohol intake: never Substance/Drug Use: never Female Reproductive History : 1 Data Anesthesia 01/04/25 19:30 Short CBC 01/04/25 Range/Units 19:30 WBC 15.57 H (3.29-11.43) 10^3/uL Hgb 11.80 (11.27-16.99) g/dL Hct 35.2 L (36-47) % MCV 87.1 (85-98) fl Plt Count 266 (157-399) 10^3/cmm Neut % (Auto) 78.5 % Neut # (Auto) 12.23 H (1.8-7.7) 10^3/uL Blood Bank 01/04/25 19:30 Blood Type O Positive Rho(D) Type Rh positive Antibody Screen Negative Anesthesia Procedures Epidural Time Out Performed: Yes Consents Signed: Procedure Consent Consent: requested by attending/covering physician, from patient, from other, risks and benefits reviewed and patient agrees to proceed Lumbar Level: L3-L4 Epidural position: sitting Epidural procedure: sterile prep of area, 1% lidocaine to numb the area, 18 g needle, negative for paresthesia passed, neg for paresthesia, test dose given, 1.5% xylocaine 1:200k epi (5 cc), 0.2% Ropivacaine bolus ml (5 cc), placed PCEA, no systemic response, sterile dressing applied, L.U.D. no apparent complications and 0.2% Ropiavacaine @ mls/hr (10) Additional Comments: ELIJAH at 4 cm, threaded to 11 cm. Patient reported decreased pain of subsequent contraction from 9/10 to 6/10 with subjective feeling of tingling toes
--- NOTE | 2025-01-05 11:51 | P.PCNOB_ITS ---
Delivery Note: Date of delivery: January 05, 2025 Pre-delivery diagnoses: 1-year-old 1 at 40 weeks estimat ed gestational age Post-delivery diagnoses: Status post vacuum-assisted vaginal delivery Procedure: Vacuum-assisted vaginal delivery Delivering Physician: Deonte Servin Estimated blood loss (mL): 75 Pre-Delivery Course: The patient presented to the hospital for elective induction. She was given Cy totec 25 mcg x 1. An amniotomy was performed in the morning. An epidural was placed. She progressed to complete. She was allowed to labor down for over an hour. Delivery: DELIVERY: The patient progressed to complete without difficulty. When the patient began pushing, the baby's heart tones dropped into the 60s and 70s. They persisted there for several minutes. This happened with 2 separate contractions. As result I elected to proceed with a vacuum. We discussed the risk of Santaniello bleed with the parents. They agreed to proceed. She delivered a male with a weight of 7 pounds 14 ounces with Apgars of 9, 9. The baby was delivered from the FARHAD position and placed on the mother's abdomen. The cord was then clamped and cut woman after delivery. There was no nuchal cord. There was no meconium. The placenta and 3 vessel cord were delivered intact shortly thereafter. The perineum and vaginal vault were carefully exami bobby. A second-degree posterior midline laceration was noted. It was repaired with 2-0 Vicryl in usual fashion.. Both the mother and the baby were in stable condition. Post-Delivery Status: Good A&P Assessment and plan (1) Vacuum-assisted vaginal delivery: I anticipate routine care. PDMP PDMP Reviewed: Not Reviewed Coding Level of Care Code Acute Code for Chg Fwd Diagnoses Vacuum-assisted vaginal delivery Z37.9
[2025-01-05] MEDS: docusate sodium 100 mg Capsule PO (16:46)
[2025-01-05] MEDS: ibuprofen 800 mg tablet PO ×2 (16:46→21:19)
--- NOTE | 2025-01-05 17:01 | PC.NURSE ---
1615 pt up to bathroom and voided large amount and then ambulated to ob 8, did good. went over call light, bed controls and pp pack.
[2025-01-06 04:00] VITALS: BP 114/76; PULSE 76; RESP 18; TEMP 36.8
[2025-01-06 05:36] LABS: Hematocrit 32.5 % (36-47); Mean Corpuscular HGB Conc 31.4 g/dL (30-55); Mean Corpuscular Hemoglobin 28.9 pg (27-33); Mean Corpuscular Volume 92.1 fl (85-98); Mean Platelet Volume 11.7 fL (7.4-10.4); Platelet Count 195 10^3/cmm (157-399); Red Blood Count 3.53 10^6/uL (3.85-5.65); Red Cell Distribution Width 14.1 % (12.1-15.1); White Blood Count 14.26 10^3/uL (3.29-11.43)
[2025-01-06 07:15] VITALS: BP 122/83; PULSE 73; RESP 16; TEMP 36.8
--- NOTE | 2025-01-06 09:53 | PM.OBGYDC ---
Discharge Providers [employer] DISPENSING Date of Admission: 01/04/25 18:30 Date of Discharge: 01/06/25 Attending Provider at Admission: Deonte Servin MD Attending Provider at Discharge: Deonte Servin MD Diagnoses at Discharge Discharge Diagnosis (1) Vacuum-assisted vaginal delivery: Status: Acute Reason for Visit Reason for Visit: IOL Hospital Course Hospital Course The patient presented to the hospital for induction. Her induction was unremarkable. She progressed complete without difficulty. Unfortunately while pushing, baby's heart tones decelerated to the 60s and 70s and remained there persistently during each contraction. As result the vacuum is used to assist in delivery. The delivery was otherwise unremarkable. She had a second-degree post anterior midline tear which was repaired without difficulty. Her course was unremarkable. Her bleeding was within normal limits. She is bottlefeeding her infant. Her pain is been well-controlled. Information Peripartum Data: Infant Delivery Method: Vaginal Physical Exam Narrative: The patient is alert. She appears comfortable. Her heart has a regular rate and rhythm with no murmurs appreciated. Lungs are clear to auscultation bilaterally. Her fundus is firm and below the umbilicus. Discharge Data Studies Completed and Pending Laboratory Results WBC 14.26 10^3/uL (3.29-11.43) H 01/06/25 00:00 RBC 3.53 10^6/uL (3.85-5.65) L 01/06/25 00:00 Hgb 10.20 g/dL (11.27-16.99) L 01/06/25 00:00 Hct 32.5 % (36-47) L 01/06/25 00:00 MCV 92.1 fl (85-98) 01/06/25 00:00 MCH 28.9 pg (27-33) 01/06/25 00:00 MCHC 31.4 g/dL (30-55) D 01/06/25 00:00 RDW 14.1 % (12.1-15.1) 01/06/25 00:00 Plt Count 195 10^3/cmm (157-399) 01/06/25 00:00 MPV 11.7 fL (7.4-10.4) H 01/06/25 00:00 Neut % (Auto) 78.5 % 01/04/25 19:30 Lymph % (Auto) 15.0 % 01/04/25 19:30 [place] % (Auto) 4.3 % 01/04/25 19:30 Eos % (Auto) 0.9 % 01/04/25 19:30 Baso % (Auto) 0.3 % 01/04/25 19:30 Neut # (Auto) 12.23 10^3/uL (1.8-7.7) H 01/04/25 19:30 Lymph # (Auto) 2.3 10^3/uL (0.8-4.8) 01/04/25 19:30 [place] # (Auto) 0.7 10^3/uL (0.2-0.9) 01/04/25 19: Eos # (Auto) 0.1 10^3/uL (0.0-0.8) 01/04/25 19: Baso # (Auto) 0.0 10^3/uL (0.0-0.1) 01/04/25 19: Nucleated RBC % (auto) 0 % 01/04/25 19: Nucleated RBCs # 0.0 /100WBC 01/04/25 19:30 Blood Type O Positive 01/04/25 19:30 Rho(D) Type Rh positive 01/04/25 19:30 Antibody Screen Negative 01/04/25 19:30 Vitals Last Vital Signs Temp 98.2 F 01/06/25 07:15 Pulse 73 01/06/25 07:15 Resp 16 01/06/25 07:15 BP 122/83 01/06/25 07:15 Pulse Ox 97 01/05/25 22:00 O2 Del Method Room Air 01/05/25 22:00 Results Labs OB ([facility]): Blood Type O Positive 01/04/25 Antibody Screen Negative 01/04/25 Hct, (36-47) 32.5 % L Today Hgb, (11.27-16.99) 10.20 g/dL L Today Rho(D) Type Rh positive 01/04/25 Plt Count, (157-399) 195 10^3/cmm Today Discharge Plan Discharge Patient Disposition: Home Condition: Stable Prescriptions: New ibuprofen 800 mg Tablet 800 mg PO TID Qty: 45 0RF Discontinued medroxyprogesterone [Depo-Provera] 150 mg/mL suspension IM doxycycline hyclate 100 mg tablet 100 mg PO BID 7 Days Qty: 14 0RF mupirocin 2 % ointment 1 applic topical TID Qty: 15 1RF Rx Instructions: apply and cover with warm moist compress for 15 minutes, 3 times daily Discharge Orders: Discharge Order (Routine); Ordered 01/06/25 Ordered By: Deonte Servin Referrals: Deonte Servin MD [Physician, Family Practice] - 6 Weeks Discharge Diet: Usual diet Discharge Activity: Limit activity as instructed Patient Instructions: Opioid Safety Discharge Attestations [employer] DISPENSING Time Spent in Discharge Care*: less than 30 min Coding Level of Care Code Acute Code for Chg Fwd Diagnoses Vacuum-assisted vaginal delivery Z37.9
[2025-01-06] MEDS: docusate sodium 100 mg Capsule PO (10:48)
[2025-01-06] MEDS: ibuprofen 800 mg tablet PO ×2 (10:48→14:44)
[2025-01-06] MEDS: PRENATAL VIT NO.130/IRON/FOLIC 1 EACH TABLET PO (10:49)
[2025-01-06 12:00] VITALS: BP 113/77; PULSE 87; RESP 16; TEMP 36.9
[2025-01-06 15:45] VITALS: BP 109/74; PULSE 96; RESP 16; TEMP 36.9
== END 2025-01-06 15:50 | disposition home or self-care (01) | DRG 807 ==
PROVIDERS: Admitting Provider Family Medicine; Visit Provider Family Medicine
DX: O48.0 Post-term pregnancy (principal); Z37.0 Single live birth; Z3A.40 40 weeks gestation of pregnancy; O70.1 Second degree perineal laceration during delivery; O76 Abnormality in fetal heart rate and rhythm complicating labor and delivery
CPT/HCPCS: 36415; 59025; 59409; 85025; 85027; 86850; 86900; 99211; J2795; J7030; J7120; J7121; J9999